=== PATIENT | male | born 1950 | race Caucasian/White ===

== ENCOUNTER 2020-08-20 09:41 | Outpatient (CLI) | payer BC ==
[2020-08-20 11:50] LABS: #Eosinphils 0.2 thou/uL (0.0-0.7); #Lymphocytes 1.3 thou/uL (1.20-3.40); #Monocytes 0.3 thou/uL (0.11-0.59); #Neutrophils 3.9 thou/uL (1.40-6.50); %Basophils 0.8 % (0.0-1.0); %Eosinophils 2.8 % (0.0-10.0); %Lymphocytes 22.6 % (21.0-51.0); %Monocytes 5.4 % (0.0-10.0); %Neutrophils 68.4 % (42.0-75.0); Mean Corpuscular HGB CONC 33.3 g/dL (32.0-36.0); Mean Corpuscular Hemoglobin 33.5 pg (27.0-31.0); Mean Platelet Volume 6.9 fL (7.4-10.4); Platelet Count 376 thou/uL (130-400); RBC Distribution Width 11.5 % (11.5-14.5); Red Blood Cell (RBC) Count 4.19 mill/uL (4.70-6.10); White Blood Cell (WBC) Count 5.8 thou/uL (4.8-10.8)
[2020-08-20 12:02] LABS: Hemoglobin A1c 5.3 % (4.0-6.0)
[2020-08-20 12:19] LABS: Albumin (w/Testosterone Panel) 4.4 g/dL
[2020-08-20 12:32] LABS: ALT (SGPT) 13 U/L (8-55); AST (SGOT) 19 U/L (5-34); Albumin 4.4 g/dL (3.4-4.8); Alkaline Phosphatase 67 U/L (40-110); Anion Gap 14 mmol/L (10-20); BUN (Urea Nitrogen) 16 mg/dL (8.4-25.7); Bilirubin, Total 1.6 mg/dL (0.2-1.2); Calc. Creatinine Clearance 0 mL/min (70-130); Calcium 9.4 mg/dL (7.8-10.44); Carbon Dioxide 25 mmol/L (23-31); Chloride 105 mmol/L (98-107); Glucose 100 mg/dL (80-115); Potassium 4.4 mmol/L (3.5-5.1); Protein, Total 7.4 g/dL (5.8-8.1); Sodium 140 mmol/L (136-145)
[2020-08-20 12:45] LABS: Sex Hormone Binding Globulin 70.6 nmol/L (11-78); Testosterone, Free 52.9 pg/mL (47-244); Testosterone, Total 442.6 ng/dL (221-716)
[2020-08-20 12:52] LABS: Free T4 (Free Thyroxine) 0.91 ng/dL (0.70-1.48); Thyroid Stimulating Hormone 1.8292 uIU/mL (0.35-4.94)
== END 2020-08-20 09:42 | disposition home or self-care (01) ==
LOC: SCSRAD 09:41
PROVIDERS: ATTEND Family Medicine
DX: R53.81 Other malaise (principal); D53.9 Nutritional anemia, unspecified; Z86.39 Personal history of other endocrine, nutritional and metabolic disease
CPT/HCPCS: 36415; 71046; 80053; 82607; 82746; 83036; 84270; 84403; 84439; 84443; 84481; 85025